=== PATIENT | female | born 1945 | race Caucasian/White ===

== ENCOUNTER 2020-01-03 09:07 | Observation (INO) ==
[2020-01-03] MEDS ORDERED: Clindamycin 600 MG/D5W BAG IV ONE (10:00)
[2020-01-03] MEDS ORDERED: diPHENhydraMINE IV 50 MG/ML 1 ml VIAL (BENADRYL) IV ONE (10:00)
[2020-01-03] MEDS ORDERED: diPHENhydraMINE IV 50 MG/ML 1 ml VIAL (BENADRYL) ONE (10:09)
[2020-01-03 10:26] LABS: ABS Eosinophils 0.2 10^3/ul (0-0.6); ABS Lymphocytes 0.7 10^3/ul (1.0-4.8); ABS Monocytes 0.3 10^3/ul (0-0.8); ABS Neutrophils 2.3 10^3/ul (1.5-7.7); Eosinophil % 6.2 %; Hematocrit 39 % (35-47); Hemoglobin 13.6 g/dL (12.0-16.0); Lymphocyte % 19.6 %; Mean Corpuscular HGB Conc 35 g/dL (31-36); Mean Corpuscular Hemoglobin 32 pg (27-31); Mean Corpuscular Volume 91 fL (80-97); Mean Platelet Volume 10.1 fL (7.4-10.4); Nucleated Red Blood Cells % 0.1; Platelet Count 103 10^3/uL (150-450); Red Blood Count 4.31 10^6 /uL (3.70-4.87); Red Cell Distribution Width 13 % (10-15); White Blood Count 3.6 10^3/uL (3.5-10.8)
[2020-01-03] MEDS ORDERED: Midazolam 5 mg/5 ml VIAL 1 mg/ml 5 ml VIAL (5 mg) ONE (10:34)
[2020-01-03] MEDS ORDERED: fentaNYL 100 mcg/2 ml 50 MCG/ML VIAL ONE (10:34)
[2020-01-03] MEDS ORDERED: Flumazenil 0.5 mg/5 ml 0.1 MG/ML 5 ml VIAL ONE (10:34)
[2020-01-03] MEDS ORDERED: Naloxone 0.4 mg VIAL 0.4 mg/ml 1 ml VIAL ONE (10:34)
[2020-01-03 10:36] LABS: Activated Partial Thrombo Time 31.3 seconds (26.0-38.0)
[2020-01-03] MEDS ORDERED: Lidocaine 1% VIAL 10 MG/ML VIAL ONE (10:36)
[2020-01-03] MEDS ORDERED: Iohexol 300 (CONTRAST) 10 ML SDV ONE (10:36)
[2020-01-03 10:42] LABS: BUN/Creatinine Ratio 18.9 (8-20); Calcium 9.2 mg/dL (8.6-10.3); EGFR African American 61.7 (>60)
[2020-01-03] MEDS ORDERED: Dextrose 50% Syringe 50 ml 25 GM/50 ML SYRINGE IV PUSH PRN (12:57)
[2020-01-03] MEDS ORDERED: Influenza VAC *QUAD* 2020-21* 0.5 ML SYRINGE IM ONE (18:30)
[2020-01-03] MEDS: Clindamycin 300 MG IVPREMIX 300 MG/50 ML SDV IV SCH (20:19)
[2020-01-04] MEDS: Clindamycin 300 MG IVPREMIX 300 MG/50 ML SDV IV SCH ×2 (04:40→11:51)
[2020-01-04 12:15] VITALS: BP 137/55
== END 2020-01-04 13:10 | disposition home or self-care (01) ==
LOC: CHICATH 09:07 → MEDTELE 09:07
PROVIDERS: ADMIT Specialist; ATTEND Specialist

== ENCOUNTER 2022-02-09 17:57 | Observation (INO) ==
[2022-02-09] MEDS ORDERED: Ondansetron 4 mg VIAL 2 MG/ML 2 ml VIAL IV ONE (21:19)
[2022-02-09 21:56] LABS: Urine Appearance Clear; Urine Bilirubin Negative (Negative); Urine Blood 1+ (Negative); Urine Color Straw; Urine Glucose 3+(>=500 mg/dL) (Negative); Urine Ketones Negative (Negative); Urine Nitrite Negative (Negative); Urine Protein Negative (Negative); Urine Specific Gravity 1.015 (1.002-1.030); Urine Urobilinogen Negative (Negative)
[2022-02-09 22:07] LABS: ALT 16 U/L (7-52); Albumin 4.5 g/dL (3.2-5.2); Alkaline Phosphatase 88 U/L (35-149); Blood Urea Nitrogen 20 mg/dL (6-24); C Reactive Protein 10.52 mg/L (<8.01); CO2 Carbon Dioxide 28 mmol/L (22-32); Calcium 9.8 mg/dL (8.6-10.3); Chloride 97 mmol/L (101-111); Globulin 2.3 g/dL (2-4); Glucose 462 mg/dL (70-100); Sodium 132 mmol/L (135-145); Total Protein 6.8 g/dL (6.4-8.9); eGFR CKD-EPI 51.6 (>60)
[2022-02-09 22:13] LABS: Urine Bacteria Absent (Absent); Urine Red Blood Cell Trace(0-2/hpf) (Absent); Urine Squamous Epithelial Cell Present (Absent); Urine White Blood Cell Trace(0-5/hpf) (Absent)
[2022-02-09 22:14] LABS: Anion Gap 7 mmol/L (2-11)
[2022-02-09 22:17] LABS: Hematocrit 49 % (35-47); Hemoglobin 16.1 g/dL (12.0-16.0); Mean Corpuscular HGB Conc 33 g/dL (31-36); Mean Corpuscular Hemoglobin 31 pg (27-31); Mean Corpuscular Volume 94 fL (80-97); Red Blood Count 5.22 10^6 /uL (3.70-4.87); Red Cell Distribution Width 14 % (10-15)
[2022-02-09] MEDS ORDERED: Acetaminophen IV 1 GM/100ML 1,000 MG/100 ML BAG IV ONE (22:26)
[2022-02-09] MEDS ORDERED: Metoclopramide 5 MG/ML VIAL (10 mg) IV SLOW PU ONE (22:26)
[2022-02-09 23:39] LABS: Glucose Confirmatory 478 mg/dL (70-100)
[2022-02-10] MEDS ORDERED: NS 0.9% IVPB ONE (00:05)
[2022-02-10] MEDS ORDERED: ACYCLOVIR IVPB ONE (00:05)
[2022-02-10 00:09] LABS: ABS Eosinophils 0.1 10^3/ul (0-0.6); ABS Lymphocytes 0.3 10^3/ul (1.0-4.8); ABS Monocytes 0.3 10^3/ul (0-0.8); ABS Neutrophils 5.3 10^3/ul (1.5-7.7); Eosinophil % 1.2 %; Lymphocyte % 5.4 %; Mean Platelet Volume 9.8 fL (7.4-10.4); Nucleated Red Blood Cells % 0.1; Platelet Count 104 10^3/uL (150-450)
[2022-02-10] MEDS ORDERED: Vancomycin 1,500 MG in NS 0.9% 250 ml 250 ML IVPB ONE (00:13)
[2022-02-10] MEDS ORDERED: SULFAMETHOXAZOLE IVPB ONE ×2 (00:16→05:00)
[2022-02-10] MEDS ORDERED: D5W IVPB ONE ×2 (00:16→05:00)
[2022-02-10] MEDS ORDERED: TRIMETH IVPB ONE ×2 (00:16→05:00)
[2022-02-10] MEDS ORDERED: Aztreonam 2 GM in NS 0.9% 100 ml BAG 100 ML IVPB ONE (00:19)
[2022-02-10] MEDS ORDERED: MOXIFLOXACIN 400 MG PO ONE (00:22)
[2022-02-10] MEDS ORDERED: Dextrose 50% Syringe 50 ml 25 GM/50 ML SYRINGE IV PUSH PRN ×2 (01:57→11:48)
[2022-02-10] MEDS ORDERED: Insulin Infusion 100unit/100mL 100 UNIT/100 ML BAG IV ONE (01:57)
[2022-02-10] MEDS ORDERED: Vancomycin per Pharmacy 1 EA NOTE FOLLOW UP PRN (04:29)
[2022-02-10 07:00] LABS: eGFR CKD-EPI 38.8 (>60)
[2022-02-10] MEDS ORDERED: NORMOSOL-R pH 7.4 1000 mL BAG 1,000 ML IV SCH (08:00)
[2022-02-10] MEDS ORDERED: NORMOSOL-R pH 7.4 1000 mL BAG 1,000 ML IV ONE (08:00)
[2022-02-10] MEDS ORDERED: Acetaminophen IV 1 GM/100ML 1,000 MG/100 ML BAG IV ONE (08:05)
[2022-02-10 08:53] LABS: Hematocrit 40 % (35-47); Hemoglobin 12.9 g/dL (12.0-16.0); Mean Corpuscular HGB Conc 32 g/dL (31-36); Mean Corpuscular Hemoglobin 30 pg (27-31); Mean Corpuscular Volume 93 fL (80-97); Red Cell Distribution Width 14 % (10-15); White Blood Count 5.9 10^3/uL (3.5-10.8)
[2022-02-10 08:56] LABS: Venous Bicarbonate HCO3 27.2 mmol/L (24-28)
[2022-02-10 09:15] LABS: ABS Lymphocytes 0.1 10^3/ul (1.0-4.8); ABS Monocytes 0.4 10^3/ul (0-0.8); ABS Neutrophils 5.4 10^3/ul (1.5-7.7); Eosinophil % 0.5 %; Mean Platelet Volume 9.1 fL (7.4-10.4); Platelet Count 87 10^3/uL (150-450)
[2022-02-10 09:18] LABS: ALT 10 U/L (7-52); AST 10 U/L (13-39); Albumin 2.7 g/dL (3.2-5.2); Albumin/Globulin Ratio 1.9 (1-3); Alkaline Phosphatase 50 U/L (35-149); Anion Gap 6 mmol/L (2-11); Blood Urea Nitrogen 19 mg/dL (6-24); CO2 Carbon Dioxide 26 mmol/L (22-32); Calcium 6.7 mg/dL (8.6-10.3); Chloride 100 mmol/L (101-111); Globulin 1.4 g/dL (2-4); Glucose 235 mg/dL (70-100); Magnesium 1.1 mg/dL (1.9-2.7); Potassium 3.2 mmol/L (3.5-5.0); Sodium 132 mmol/L (135-145); Total Protein 4.1 g/dL (6.4-8.9); eGFR CKD-EPI 59.1 (>60)
[2022-02-10] MEDS ORDERED: Magnesium Sulf 4 GM/100 ML IV 4,000 MG/100 ML BAG IVPB ONE (09:31)
[2022-02-10 09:46] LABS: C Reactive Protein 52.62 mg/L (<8.01)
[2022-02-10 10:03] LABS: Rheumatoid Factor < 10 IU/mL (<15)
[2022-02-10 10:18] LABS: TSH Ultra Thyroid Stim Horm 0.67 mcIU/mL (0.34-5.60)
[2022-02-10] MEDS ORDERED: Potassium Chlor 20 meq TAB.ER PO ONE (10:21)
[2022-02-10 10:29] LABS: Vitamin B12 153 pg/mL (180-914)
[2022-02-10] MEDS ORDERED: DOXYcycline 100 MG in NS 0.9% 250 ml 250 ML IVPB SCH (11:00)
[2022-02-10] MEDS ORDERED: Aztreonam 2 GM in NS 0.9% 100 ML 100 ML IV SCH (11:30)
[2022-02-10 11:31] LABS: Erythrocyte Sed Rate 9 mm/Hr (0-29)
[2022-02-10 12:04] LABS: Albumin/Globulin Ratio 2.1 (1-3); Calcium 7.4 mg/dL (8.6-10.3); Globulin 1.4 g/dL (2-4); Potassium 3.5 mmol/L (3.5-5.0); Total Bilirubin 0.5 mg/dL (0.2-1.0); Total Protein 4.4 g/dL (6.4-8.9); eGFR CKD-EPI 52.2 (>60)
[2022-02-10] MEDS ORDERED: Heparin DRIP 25,000 UNITS BAG 25,000 UNITS/500 ML BAG ONE (12:07)
[2022-02-10] MEDS: Heparin DRIP 25,000 UNITS BAG 25,000 UNITS/500 ML BAG IV SCH (12:26)
[2022-02-10] MEDS ORDERED: Vancomycin 750 MG in NS 0.9% 250 ML IVPB SCH (13:00)
[2022-02-10] MEDS ORDERED: Acyclovir IV 500 MG in NS 0.9% 100 ml BAG 100 ML IVPB SCH (13:00)
[2022-02-10] MEDS ORDERED: D5W IVPB SCH (14:30)
[2022-02-10] MEDS ORDERED: SULFAMETHOXAZOLE IVPB SCH (14:30)
[2022-02-10] MEDS ORDERED: TRIMETH IVPB SCH (14:30)
[2022-02-10] MEDS: Lactated Ringers 1000 ml BAG 1,000 ML IV SCH (14:31)
[2022-02-10 14:52] LABS: ABS Eosinophils 0.1 10^3/ul (0-0.6); ABS Lymphocytes 0.2 10^3/ul (1.0-4.8); ABS Monocytes 0.3 10^3/ul (0-0.8); ABS Neutrophils 4.3 10^3/ul (1.5-7.7); Eosinophil % 1.5 %; Hematocrit 42 % (35-47); Hemoglobin 13.5 g/dL (12.0-16.0); Mean Corpuscular HGB Conc 33 g/dL (31-36); Mean Corpuscular Hemoglobin 31 pg (27-31); Mean Corpuscular Volume 94 fL (80-97); Mean Platelet Volume 9.1 fL (7.4-10.4); Platelet Count 95 10^3/uL (150-450); Red Blood Count 4.42 10^6 /uL (3.70-4.87); Red Cell Distribution Width 14 % (10-15); White Blood Count 4.9 10^3/uL (3.5-10.8)
[2022-02-10 16:17] LABS: eGFR CKD-EPI 42.8 (>60)
[2022-02-10] MEDS ORDERED: MOXIFLOXACIN 400 MG PO SCH (21:00)
[2022-02-11] MEDS: Lactated Ringers 1000 ml BAG 1,000 ML IV SCH ×2 (01:36→09:40)
[2022-02-11] MEDS: DOXYcycline 100 MG in NS 0.9% 250 ml 250 ML IVPB SCH ×2 (02:55→14:06)
[2022-02-11 05:26] LABS: ABS Eosinophils 0.1 10^3/ul (0-0.6); ABS Lymphocytes 0.4 10^3/ul (1.0-4.8); ABS Monocytes 0.2 10^3/ul (0-0.8); ABS Neutrophils 1.9 10^3/ul (1.5-7.7); Eosinophil % 5.5 %; Hematocrit 39 % (35-47); Hemoglobin 13.2 g/dL (12.0-16.0); Lymphocyte % 13.5 %; Mean Corpuscular HGB Conc 34 g/dL (31-36); Mean Corpuscular Hemoglobin 31 pg (27-31); Mean Corpuscular Volume 93 fL (80-97); Mean Platelet Volume 9.9 fL (7.4-10.4); Nucleated Red Blood Cells % 0.1; Platelet Count 77 10^3/uL (150-450); Red Blood Count 4.23 10^6 /uL (3.70-4.87); Red Cell Distribution Width 14 % (10-15); White Blood Count 2.7 10^3/uL (3.5-10.8)
[2022-02-11] MEDS ORDERED: Vancomycin Random Level NOTE FOLLOW UP ONE (06:00)
[2022-02-11] MEDS ORDERED: Magnesium Sulfate 2 gm BAG 2 GM/50 ML BAG IVPB ONE (07:14)
[2022-02-11 08:48] LABS: Calcium 8.4 mg/dL (8.6-10.3); Potassium 4.4 mmol/L (3.5-5.0)
[2022-02-11 08:56] LABS: eGFR CKD-EPI 59.1 (>60)
[2022-02-11] MEDS ORDERED: INSULIN GLARGINE LIXISENATIDE SUBCUT SCH (09:00)
[2022-02-11] MEDS ORDERED: [UNRECOGNIZED DRUG - OTHER] SUBCUT SCH (09:00)
[2022-02-11] MEDS ORDERED: Tiotropium Brom/Olodaterol MDI INH SCH (09:00)
[2022-02-11] MEDS ORDERED: Insulin GLARGINE 100 un/ml 10 ml VIAL SUBCUT SCH (09:00)
[2022-02-11] MEDS ORDERED: INSUL SUBCUT SCH (09:00)
[2022-02-11] MEDS ORDERED: Vancomycin Trough Check NOTE FOLLOW UP ONE (12:30)
[2022-02-11] MEDS: Heparin DRIP 25,000 UNITS BAG 25,000 UNITS/500 ML BAG IV SCH (13:54)
[2022-02-11 15:02] VITALS: BP 162/80
[2022-02-11] MEDS ORDERED: Cyanocobalamin INJ 1,000 MCG/ML VIAL 1 ML VIAL IM ONE (16:15)
[2022-02-12 18:17] LABS: Anaplasma phagocytophilum Negative (Negative); B. miyamotoi PCR, B Negative (Negative); Babesia divergens/MO-1 Negative (Negative); Babesia ducani Negative (Negative); Ehrlichia chaffeensis Negative (Negative); Ehrlichia ewingii/canis Negative (Negative); Ehrlichia muris eauclairensis Negative (Negative)
== END 2022-02-11 18:00 | disposition home or self-care (01) ==
LOC: EDHOLD 17:57 → ED 17:57 → SUATTDRO 02-10 09:52 → MED 02-10 13:13
PROVIDERS: ADMIT Hospitalist; ATTEND Internal Medicine

== ENCOUNTER 2022-04-09 14:19 | Inpatient (IN) ==
[2022-04-09 16:45] LABS: Hematocrit 37 % (35-47); Hemoglobin 11.9 g/dL (12.0-16.0); Mean Corpuscular Hemoglobin 30 pg (27-31); Mean Corpuscular Volume 92 fL (80-97); Red Blood Count 3.98 10^6 /uL (3.70-4.87); White Blood Count 5.8 10^3/uL (3.5-10.8)
[2022-04-09 16:46] LABS: ABS Eosinophils 0.1 10^3/ul (0-0.6); ABS Lymphocytes 0.7 10^3/ul (1.0-4.8); ABS Monocytes 0.7 10^3/ul (0-0.8); ABS Neutrophils 4.2 10^3/ul (1.5-7.7); Eosinophil % 2.1 %; Lymphocyte % 12.2 %; Mean Corpuscular HGB Conc 33 g/dL (31-36); Mean Platelet Volume 9.5 fL (7.4-10.4); Platelet Count 125 10^3/uL (150-450); Red Cell Distribution Width 13 % (10-15)
[2022-04-09 16:59] LABS: Albumin 3.3 g/dL (3.2-5.2); Albumin/Globulin Ratio 1.7 (1-3); C Reactive Protein 184.02 mg/L (<8.01); Calcium 8.8 mg/dL (8.6-10.3); Potassium 3.8 mmol/L (3.5-5.0); Total Bilirubin 0.5 mg/dL (0.2-1.0); Total Protein 5.3 g/dL (6.4-8.9); eGFR CKD-EPI 55.8 (>60)
[2022-04-09] MEDS ORDERED: Dextrose 50% Syringe 50 ml 25 GM/50 ML SYRINGE IV PUSH PRN (20:47)
[2022-04-09 20:54] LABS: Urine Appearance Cloudy; Urine Bilirubin Negative (Negative); Urine Blood 1+ (Negative); Urine Color Yellow; Urine Glucose Negative (Negative); Urine Ketones Negative (Negative); Urine Nitrite Negative (Negative); Urine Protein 1+(30 mg/dL) (Negative); Urine Specific Gravity 1.016 (1.002-1.030); Urine Urobilinogen Negative (Negative)
[2022-04-09 20:58] LABS: Urine Bacteria 2+ (Absent); Urine Red Blood Cell 2+(6-10/hpf) (Absent); Urine Squamous Epithelial Cell Present (Absent); Urine White Blood Cell 3+(>20/hpf) (Absent); Urine Yeast Present (Absent)
[2022-04-09 21:22] LABS: HDL Cholesterol 37.9 mg/dL
[2022-04-10 05:22] LABS: ABS Lymphocytes 0.4 10^3/ul (1.0-4.8); ABS Monocytes 0.1 10^3/ul (0-0.8); ABS Neutrophils 5.2 10^3/ul (1.5-7.7); Eosinophil % 0.1 %; Hematocrit 37 % (35-47); Hemoglobin 12.2 g/dL (12.0-16.0); Lymphocyte % 7.3 %; Mean Corpuscular HGB Conc 33 g/dL (31-36); Mean Corpuscular Hemoglobin 30 pg (27-31); Mean Corpuscular Volume 92 fL (80-97); Mean Platelet Volume 9.3 fL (7.4-10.4); Platelet Count 126 10^3/uL (150-450); Red Blood Count 4.03 10^6 /uL (3.70-4.87); Red Cell Distribution Width 13 % (10-15); White Blood Count 5.8 10^3/uL (3.5-10.8)
[2022-04-10 06:00] LABS: Calcium 8.6 mg/dL (8.6-10.3); Potassium 4.2 mmol/L (3.5-5.0); eGFR CKD-EPI 52.2 (>60)
[2022-04-10] MEDS: Tiotropium Brom/Olodaterol MDI INH SCH (11:13)
[2022-04-10 17:05] LABS: Glucose Confirmatory 493 mg/dL (70-100)
[2022-04-10] MEDS ORDERED: Moxifloxacin 0.5% OPHTH(NF) 1 DROP OPHTH.SOLN OPHTHALMIC SCH (21:00)
[2022-04-11] MEDS: Albuterol HFA INHALER 8 gm MDI INH PRN ×2 (00:12→13:56)
[2022-04-11 01:11] LABS: High Sensitivity Troponin 1 Hr 5 pg/mL (<15)
[2022-04-11 08:06] LABS: ABS Lymphocytes 0.8 10^3/ul (1.0-4.8); ABS Monocytes 0.4 10^3/ul (0-0.8); ABS Neutrophils 5.9 10^3/ul (1.5-7.7); Eosinophil % 0.1 %; Hematocrit 37 % (35-47); Hemoglobin 12.3 g/dL (12.0-16.0); Lymphocyte % 10.9 %; Mean Corpuscular HGB Conc 33 g/dL (31-36); Mean Corpuscular Hemoglobin 30 pg (27-31); Mean Corpuscular Volume 92 fL (80-97); Mean Platelet Volume 9.1 fL (7.4-10.4); Platelet Count 154 10^3/uL (150-450); Red Blood Count 4.08 10^6 /uL (3.70-4.87); Red Cell Distribution Width 13 % (10-15); White Blood Count 7.2 10^3/uL (3.5-10.8)
[2022-04-11 08:50] LABS: Calcium 9.1 mg/dL (8.6-10.3); Potassium 4.2 mmol/L (3.5-5.0); eGFR CKD-EPI 51.6 (>60)
[2022-04-11] MEDS: Tiotropium Brom/Olodaterol MDI INH SCH (11:09)
[2022-04-12 06:57] LABS: ABS Lymphocytes 0.9 10^3/ul (1.0-4.8); ABS Monocytes 0.4 10^3/ul (0-0.8); ABS Neutrophils 6.3 10^3/ul (1.5-7.7); Eosinophil % 0.2 %; Hematocrit 38 % (35-47); Hemoglobin 12.6 g/dL (12.0-16.0); Lymphocyte % 12.2 %; Mean Corpuscular HGB Conc 33 g/dL (31-36); Mean Corpuscular Hemoglobin 31 pg (27-31); Mean Corpuscular Volume 92 fL (80-97); Mean Platelet Volume 9.1 fL (7.4-10.4); Platelet Count 155 10^3/uL (150-450); Red Blood Count 4.13 10^6 /uL (3.70-4.87); Red Cell Distribution Width 13 % (10-15); White Blood Count 7.7 10^3/uL (3.5-10.8)
[2022-04-12 07:13] LABS: Magnesium 1.5 mg/dL (1.9-2.7); Potassium 4.3 mmol/L (3.5-5.0); eGFR CKD-EPI 63.7 (>60)
[2022-04-12] MEDS ORDERED: Magnesium Sulfate 2 gm BAG 2 GM/50 ML BAG IVPB ONE (07:56)
[2022-04-12] MEDS: Tiotropium Brom/Olodaterol MDI INH SCH (11:09)
[2022-04-12] MEDS ORDERED: NS 0.9% 500 ml BAG 500 ML IV ONE (14:42)
[2022-04-13 07:00] LABS: Calcium 9.1 mg/dL (8.6-10.3); Magnesium 1.7 mg/dL (1.9-2.7)
[2022-04-13 07:06] LABS: eGFR CKD-EPI 62.1 (>60)
[2022-04-13] MEDS ORDERED: Insulin GLARGINE 100 un/ml 10 ml VIAL SUBCUT SCH (09:00)
[2022-04-13] MEDS: Tiotropium Brom/Olodaterol MDI INH SCH (09:12)
[2022-04-13 12:39] VITALS: BP 162/65
== END 2022-04-13 15:00 | disposition home or self-care (01) | DRG 193 ==
LOC: EDHOLD 14:19 → ED 14:19 → SUATTDRO 20:28 → EDHOLD 04-10 12:29 → MCHPEDS 04-10 12:30 → MEDTELE 04-10 15:10 → SUATTDRO 04-10 17:44
PROVIDERS: ADMIT Student in an Organized Health Care Education/Training Program; ATTEND Internal Medicine

== ENCOUNTER 2024-04-11 19:42 | Inpatient (IN) ==
[2024-04-11] MEDS: Ondansetron 4 mg VIAL 2 MG/ML 2 ml VIAL IV ONE (19:50)
[2024-04-11 20:09] LABS: Activated Partial Thrombo Time 29.1 seconds (26.0-38.0); INR 1.31 (0.85-1.14)
[2024-04-11 20:11] LABS: Hemoglobin 13.2 g/dL (11.5-14.3); Mean Corpuscular Hemoglobin 30.6 pg (27-33); Mean Corpuscular Hgb Conc 33.1 g/dL (31-36); Mean Corpuscular Volume 92.6 fL (80-97); Mean Platelet Volume 10.2 fL (7.5-11.2); Platelet Count 114 10^3/uL (150-450); Red Blood Count 4.32 10^6/uL (3.63-4.92); White Blood Count 5.7 10^3/uL (3.8-11.8)
[2024-04-11 20:15] LABS: Albumin 3.8 g/dL (3.5-5.7); Albumin/Globulin Ratio 1.5 (1-3); C Reactive Protein 58.12 mg/L (<8.01); Calcium 9.8 mg/dL (8.6-10.3); Creatinine, Serum 1.79 mg/dL (0.51-0.95); Direct Bilirubin 0.1 mg/dL (0.03-0.18); Globulin 2.5 g/dL (2-4); HDL Cholesterol 57.7 mg/dL; Indirect Bilirubin 0.6 mg/dL (0.3-1.0); Potassium 3.7 mmol/L (3.5-5.0); Total Bilirubin 0.7 mg/dL (0.2-1.0); Total Protein 6.3 g/dL (6.4-8.9)
[2024-04-11] MEDS: Iodixanol 320 (CONTRAST) 100 ML SDV IV ONE (20:16)
[2024-04-11 20:56] LABS: ABS Lymphocytes 0.2 10^3/uL (1.0-4.8); ABS Monocytes 0.1 10^3/uL (0.0-0.9); ABS Neutrophils 5.3 10^3/uL (1.5-7.6); Eosinophil % 0.1 %; Lymphocyte % 3.9 %
[2024-04-11 23:23] LABS: Urine Appearance Clear; Urine Bacteria 1+ /HPF (Absent); Urine Bilirubin Negative (Negative); Urine Blood 2+ (Negative); Urine Color Light-Yellow; Urine Glucose 4+ (>=1000 mg/dL) (Negative); Urine Ketones 1+ (Negative); Urine Nitrite 2+ (Negative); Urine Protein Negative (Negative); Urine Red Blood Cell 1+(3-5/hpf) /HPF (0-Trace); Urine Specific Gravity 1.041 (1.002-1.030); Urine Squamous Epithelial Cell Present /HPF (Absent); Urine Urobilinogen Negative (Negative); Urine White Blood Cell 3+(>20/hpf) /HPF (0-Trace)
[2024-04-12] MEDS: cefTRIAXone 1 gm/50 mL D5W 1 GM/50 ML BAG IV ONE (00:08)
[2024-04-12] MEDS: Ondansetron 4 mg VIAL 2 MG/ML 2 ml VIAL IV ONE (00:31)
[2024-04-12] MEDS: Lactated Ringers 1000 ml BAG 1,000 ML IV ONE (02:21)
[2024-04-12] MEDS: Lactated Ringers 1000 ml BAG 1,000 ML IV SCH ×3 (03:28→18:23)
[2024-04-12] MEDS ORDERED: Dextrose 50% Syringe 50 ml 25 GM/50 ML SYRINGE IV PUSH PRN (03:52)
[2024-04-12] MEDS ORDERED: Albuterol HFA INHALER 8 gm MDI INH PRN (04:08)
[2024-04-12] MEDS ORDERED: Ondansetron ODT 4 mg TAB 4 MG TAB PO PRN (04:08)
[2024-04-12 06:45] LABS: Hematocrit 37.5 % (35-45); Hemoglobin 12.3 g/dL (11.5-14.3); Mean Corpuscular Hgb Conc 32.9 g/dL (31-36); Mean Corpuscular Volume 94.1 fL (80-97); Red Blood Count 3.98 10^6/uL (3.63-4.92); Red Cell Distribution Width 13.9 % (12-17); White Blood Count 7.7 10^3/uL (3.8-11.8)
[2024-04-12 07:15] LABS: Albumin 3.5 g/dL (3.5-5.7); Albumin/Globulin Ratio 1.8 (1-3); Calcium 9.1 mg/dL (8.6-10.3); Creatinine, Serum 2.05 mg/dL (0.51-0.95); Globulin 1.9 g/dL (2-4); Magnesium 1.6 mg/dL (1.9-2.7); Potassium 3.9 mmol/L (3.5-5.0); Total Bilirubin 0.7 mg/dL (0.2-1.0); Total Protein 5.4 g/dL (6.4-8.9); eGFR CKD-EPI 24.7 (>60)
[2024-04-12] MEDS ORDERED: Sulfur Hexaflouride MICROSPHR 25 MG VIAL IV PRN (08:03)
[2024-04-12 08:33] LABS: ABS Lymphocytes 0.7 10^3/uL (1.0-4.8); ABS Monocytes 0.2 10^3/uL (0.0-0.9); ABS Neutrophils 6.8 10^3/uL (1.5-7.6); Lymphocyte % 9.6 %; Mean Platelet Volume 9.3 fL (7.5-11.2); Platelet Count 98 10^3/uL (150-450)
[2024-04-12 08:34] LABS: Phosphorus 6.1 mg/dL (2.5-5.0)
[2024-04-12] MEDS: Insulin GLARGINE 100 un/ml 10 ml VIAL SUBCUT SCH (08:41)
[2024-04-12] MEDS: Magnesium Sulf 4 GM/100 ML IV 4,000 MG/100 ML BAG IVPB ONE (09:05)
[2024-04-12] MEDS: Mupirocin 2% OINT TUBE TOPICAL SCH (09:26)
[2024-04-12] MEDS: MOMETASONE 0.1% TOPICAL SCH (09:28)
[2024-04-12] MEDS: [UNRECOGNIZED DRUG - REMARK] PO SCH (09:29)
[2024-04-12] MEDS: Potassium Chloride LIQUID 20 MEQ/15 ML LIQUID PO ONE (10:10)
[2024-04-12] MEDS: cefTRIAXone 1 gm/50 mL D5W 1 GM/50 ML BAG IV SCH (12:23)
[2024-04-12] MEDS: CMC:FLUTICAS/UMECLI/VILANT 100-62.5-25 MDI (NF) INH SCH (15:58)
[2024-04-12 16:33] LABS: Calcium 9.1 mg/dL (8.6-10.3); Creatinine, Serum 2.19 mg/dL (0.51-0.95); Magnesium 2.9 mg/dL (1.9-2.7); Potassium 3.9 mmol/L (3.5-5.0); eGFR CKD-EPI 22.8 (>60)
[2024-04-12] MEDS: Acetaminophen IV 1 GM/100ML 1,000 MG/100 ML BAG IV ONE (18:22)
[2024-04-12] MEDS ORDERED: Lactated Ringers 1000 ml BAG 1,000 ML IV SCH (19:00)
[2024-04-12] MEDS: Latanoprost 0.005% 2.5 ml BTL BOTH EYES SCH (22:19)
[2024-04-13] MEDS: cefTRIAXone 2 gm/50 mL D5W 2 GM/50 ML BAG IV SCH (00:52)
[2024-04-13 06:01] LABS: ABS Lymphocytes 0.3 10^3/uL (1.0-4.8); ABS Monocytes 0.3 10^3/uL (0.0-0.9); ABS Neutrophils 5.3 10^3/uL (1.5-7.6); Eosinophil % 0.1 %; Hematocrit 32.9 % (35-45); Hemoglobin 11.1 g/dL (11.5-14.3); Lymphocyte % 4.4 %; Mean Corpuscular Hemoglobin 31.1 pg (27-33); Mean Corpuscular Hgb Conc 33.6 g/dL (31-36); Mean Corpuscular Volume 92.6 fL (80-97); Mean Platelet Volume 10.2 fL (7.5-11.2); Platelet Count 88 10^3/uL (150-450); Red Blood Count 3.56 10^6/uL (3.63-4.92); Red Cell Distribution Width 13.8 % (12-17); White Blood Count 5.8 10^3/uL (3.8-11.8)
[2024-04-13 06:26] LABS: Calcium 8.3 mg/dL (8.6-10.3); Creatinine, Serum 1.88 mg/dL (0.51-0.95); Magnesium 2.4 mg/dL (1.9-2.7); Potassium 3.4 mmol/L (3.5-5.0); eGFR CKD-EPI 27.4 (>60)
[2024-04-13] MEDS: Potassium Chlor 20 meq TAB.ER PO ONE ×2 (08:15→18:34)
[2024-04-13] MEDS: Insulin GLARGINE 100 un/ml 10 ml VIAL SUBCUT SCH (08:42)
[2024-04-13] MEDS: NS 0.9% 1000 ml BAG 1,000 ML IV SCH (12:41)
[2024-04-13 17:13] LABS: Anion Gap 5 mmol/L (2-16); Blood Urea Nitrogen 26 mg/dL (6-24); CO2 Carbon Dioxide 22 mmol/L (22-32); Calcium 6.2 mg/dL (8.6-10.3); Chloride 110 mmol/L (101-111); Creatinine, Serum 1.32 mg/dL (0.51-0.95); Glucose 91 mg/dL (70-100); Sodium 137 mmol/L (135-145); eGFR CKD-EPI 41.8 (>60)
[2024-04-13 18:07] LABS: Creatinine, Serum 1.91 mg/dL (0.51-0.95); Magnesium 2.3 mg/dL (1.9-2.7); Potassium 3.7 mmol/L (3.5-5.0); Potassium Redraw 3.7 mmol/L (3.5-5.0); eGFR CKD-EPI 26.9 (>60)
[2024-04-14 06:13] LABS: Creatinine, Serum 1.59 mg/dL (0.51-0.95); Magnesium 2.1 mg/dL (1.9-2.7); eGFR CKD-EPI 33.5 (>60)
[2024-04-14 06:19] LABS: Hematocrit 32.2 % (35-45); Mean Corpuscular Hemoglobin 31.7 pg (27-33); Mean Corpuscular Hgb Conc 34.2 g/dL (31-36); Mean Corpuscular Volume 92.7 fL (80-97); Red Blood Count 3.47 10^6/uL (3.63-4.92); Red Cell Distribution Width 13.9 % (12-17)
[2024-04-14 08:13] LABS: ABS Lymphocytes 0.2 10^3/uL (1.0-4.8); ABS Monocytes 0.2 10^3/uL (0.0-0.9); ABS Neutrophils 2.6 10^3/uL (1.5-7.6); Eosinophil % 0.8 %; Lymphocyte % 6.5 %; Mean Platelet Volume 10.1 fL (7.5-11.2); Nucleated Red Blood Cells % 0.1 %/100WBC (0.0-0.8); Platelet Count 68 10^3/uL (150-450)
[2024-04-14] MEDS: Insulin GLARGINE 100 un/ml 10 ml VIAL SUBCUT SCH (08:39)
[2024-04-14] MEDS: Benzocaine/Menthol LOZ PO PRN (08:40)
[2024-04-14] MEDS: Nystatin TOP POWDER 15 GM BTL TOPICAL SCH (11:48)
[2024-04-14] MEDS: NS 0.9% 1000 ml BAG 1,000 ML IV SCH (17:48)
[2024-04-15 07:08] LABS: ABS Eosinophils 0.1 10^3/uL (0.0-0.5); ABS Lymphocytes 0.3 10^3/uL (1.0-4.8); ABS Monocytes 0.3 10^3/uL (0.0-0.9); ABS Neutrophils 2.5 10^3/uL (1.5-7.6); Eosinophil % 2.1 %; Hematocrit 30.1 % (35-45); Hemoglobin 10.3 g/dL (11.5-14.3); Lymphocyte % 8.4 %; Mean Corpuscular Hemoglobin 31.3 pg (27-33); Mean Corpuscular Hgb Conc 34.2 g/dL (31-36); Mean Corpuscular Volume 91.5 fL (80-97); Nucleated Red Blood Cells % 0.1 %/100WBC (0.0-0.8); Platelet Count 77 10^3/uL (150-450); Red Blood Count 3.28 10^6/uL (3.63-4.92); Red Cell Distribution Width 13.6 % (12-17); White Blood Count 3.1 10^3/uL (3.8-11.8)
[2024-04-15 07:29] LABS: Creatinine, Serum 1.33 mg/dL (0.51-0.95); Magnesium 1.8 mg/dL (1.9-2.7); Potassium 3.7 mmol/L (3.5-5.0); eGFR CKD-EPI 41.5 (>60)
[2024-04-15] MEDS: Potassium Chlor 20 meq TAB.ER PO ONE (08:25)
[2024-04-15] MEDS: Magnesium Sulfate 2 gm BAG 2 GM/50 ML BAG IVPB ONE (08:29)
[2024-04-15] MEDS: cefTRIAXone 1 gm/50 mL D5W 1 GM/50 ML BAG IV SCH (20:03)
[2024-04-16 06:38] LABS: Calcium 8.3 mg/dL (8.6-10.3); Creatinine, Serum 1.28 mg/dL (0.51-0.95); Magnesium 1.7 mg/dL (1.9-2.7); Potassium 4.2 mmol/L (3.5-5.0); eGFR CKD-EPI 43.4 (>60)
[2024-04-16 06:56] LABS: Hematocrit 30.3 % (35-45); Hemoglobin 10.4 g/dL (11.5-14.3); Mean Corpuscular Hemoglobin 31.7 pg (27-33); Mean Corpuscular Hgb Conc 34.3 g/dL (31-36); Mean Corpuscular Volume 92.3 fL (80-97); Red Blood Count 3.28 10^6/uL (3.63-4.92); Red Cell Distribution Width 13.7 % (12-17); White Blood Count 3.4 10^3/uL (3.8-11.8)
[2024-04-16 07:08] LABS: ABS Eosinophils 0.1 10^3/uL (0.0-0.5); ABS Lymphocytes 0.3 10^3/uL (1.0-4.8); ABS Monocytes 0.4 10^3/uL (0.0-0.9); ABS Neutrophils 2.6 10^3/uL (1.5-7.6); Eosinophil % 1.9 %; Lymphocyte % 10.1 %; Mean Platelet Volume 10.3 fL (7.5-11.2); Nucleated Red Blood Cells % 0.1 %/100WBC (0.0-0.8); Platelet Count 84 10^3/uL (150-450)
[2024-04-16] MEDS: Magnesium Sulfate 2 gm BAG 2 GM/50 ML BAG IVPB ONE (08:03)
[2024-04-16] MEDS: Magnesium Sulfate IV 1GM/100ML 1 GM/100 ML BAG IV ONE (10:28)
[2024-04-16 14:08] VITALS: BP 138/67
== END 2024-04-16 16:00 | disposition home or self-care (01) | DRG 872 ==
LOC: EDHOLD 19:42 → ED 19:42 → MEDTELE 04-12 04:24 → ICU 04-12 06:46 → SUATTDRO 04-12 09:16 → MEDTELE 04-12 15:15
PROVIDERS: ADMIT Internal Medicine; ATTEND Internal Medicine